=== PATIENT | female | born 1970 | race Caucasian/White ===

== ENCOUNTER 2017-06-23 11:41 | Emergency (ER) | payer OTHER ==
[2017-06-23 11:44] VITALS: BP 169/83; PULSE 78; RESP 16; TEMP 98.6; O2SAT 97
[2017-06-23] MEDS ORDERED: SODIUM CHLOR 0.9% 1000 ML INJ 1,000 ML IV SCH (12:01)
[2017-06-23 12:10] VITALS: RESP 18; O2SAT 100
[2017-06-23 12:11] VITALS: BP 157/76; PULSE 76; RESP 18; O2SAT 98
[2017-06-23] MEDS ORDERED: ORTHTAB4 PO (12:13)
[2017-06-23] MEDS ORDERED: MIRA3350 PO (12:13)
[2017-06-23] MEDS ORDERED: SODIUM CHLORIDE 0.9% FLUSH 10 ML FLUSH IV FLUSH PRN (12:15)
[2017-06-23] MEDS ORDERED: PRIL10PO PO (12:15)
[2017-06-23] MEDS ORDERED: ONDANSETRON HCL 4 MG/2 ML VIAL IV PUSH ONE (12:15)
[2017-06-23 12:29] LABS: AUTOMATED NEUTROPHIL # 8.1 TH/MM3 (1.8-7.7); BASOPHIL # 0.1 TH/MM3 (0-0.2); BASOPHIL % 0.6 % (0.0-2.0); EOSINOPHIL # 0.1 TH/MM3 (0-0.4); HEMATOCRIT 41.8 % (35.0-46.0); HEMOGLOBIN 14.3 GM/DL (11.6-15.3); LYMPH % 20.3 % (9.0-44.0); LYMPHOCYTE # 2.2 TH/MM3 (1.0-4.8); MEAN CELL VOLUME 88.9 FL (80.0-100.0); MEAN CORPUSCULAR HEMOGLOBIN 30.4 PG (27.0-34.0); MEAN CORPUSCULAR HGB CONC 34.2 % (32.0-36.0); MEAN PLATELET VOLUME 9.1 FL (7.0-11.0); MONO % 4.8 % (0.0-8.0); MONOCYTE # 0.5 TH/MM3 (0-0.9); NEUT % 73.3 % (16.0-70.0); PLATELET COUNT 284 TH/MM3 (150-450); RED BLOOD COUNT 4.69 MIL/MM3 (4.00-5.30); WHITE BLOOD COUNT 11.1 TH/MM3 (4.0-11.0)
--- NOTE | 2017-06-23 12:29 | PD ---
HPI Chief Complaint: Abdominal Pain Time Seen by Provider: 12:00 Travel History International Travel<30 days: No Contact w/Intl Traveler<30days: No Traveled to known affect area: No History of Present Illness HPI Patient is a 47-year-old female with history of diverticulitis, most room with complaints of lower abdominal pain. Reports that she has had mild to moderate lower abdominal pain since yesterday. She reports that she has had the urge to defecate but has been unable to. Patient reports that she has been having normal bowel movements, denies any diarrhea. She denies any nausea or vomiting , reports increased cramping to the lower abdomen. Patient denies any dysuria, urinary urgency or frequency. Patient reports that symptoms feel exactly the same as when she was diagnosed with diverticulitis in the past. Patient has not follow-up with the gastrointestinal doctor for a colonoscopy though she knows importance of follow up as her dad did have history of colon cancer PFSH Past Medical History Gastrointestinal Disorders: Yes (DIVERTICULITIS ) Hypertension: Yes Reproductive: Yes (FIBROIDS ON OVARIES ) Tetanus Vaccination: < 5 Years ?: Not LMP: 05/24/17 Past Surgical History Surgical History: No Previous Surgery Social History Alcohol Use: Yes (SOCIAL) Tobacco Use: No Substance Use: No Allergies-Medications (Allergen,Severity, Reaction): Coded Allergies: No Known Allergies (Unverified , 06/23/17) Reported Meds & Prescriptions Reported Meds & Active Scripts Active Flagyl (Metronidazole) 500 Mg Tab 500 Mg PO TID 10 Days Cipro (Ciprofloxacin HCl) 500 Mg Tab 500 Mg PO BID 10 Days Reported Prilosec (Omeprazole Magnesium) 10 Mg Pow 10 Mg PO DAILY Ortho Tri-Cyclen (Norgestimate-Ethinyl Estradiol) 0.18/0.215/0.25 mg-35 Mcg Tab 1 Tab PO DAILY Miralax Powder (Polyethylene Glycol 3350 Powder) 17 Gm Powd 17 Gm PO DAILY Mix and dissolve one measuring cap-ful (17 grams) in water or juice. Review of Systems General / Constitutional: No: Fever, Chills Eyes: No: Visual changes HENT: No: Headaches Cardiovascular: No: Chest Pain or Discomfort Respiratory: No: Shortness of Breath Gastrointestinal: Positive: Abdominal Pain, No: Nausea, Vomiting, Diarrhea, Constipation Genitourinary: No: Dysuria Musculoskeletal: No: Pain Skin: No Rash Neurologic: No: Weakness, Dizziness, Syncope Psychiatric: No: Depression Endocrine: No: Polydipsia Hematologic/Lymphatic: No: Easy Bruising Physical Exam Narrative GENERAL: Mild distress SKIN: Focused skin assessment warm/dry. HEAD: Atraumatic. Normocephalic. EYES: Pupils equal and round. No scleral icterus. No injection or drainage. ENT: No nasal bleeding or discharge. Mucous membranes pink and moist. NECK: Trachea midline. No JVD. CARDIOVASCULAR: Regular rate and rhythm. No murmur appreciated. RESPIRATORY: No accessory muscle use. Clear to auscultation. Breath sounds equal bilaterally. GASTROINTESTINAL: Abdomen soft, mildly tender to lower abdomen, nondistended. Hepatic and splenic margins not palpable. MUSCULOSKELETAL: No obvious deformities. No clubbing. No cyanosis. No edema. NEUROLOGICAL: Awake and alert. No obvious cranial nerve deficits. Motor grossly within normal limits. Normal speech. PSYCHIATRIC: Appropriate mood and affect; insight and judgment normal. Data Data Last Documented VS Vital Signs Date Time Temp Pulse Resp B/P (MAP) Pulse Ox O2 Delivery O2 Flow Rate FiO2 06/23/17 12:11 76 18 157/76 (103) 98 Room Air 06/23/17 11:44 98.6 Orders Orders Complete Blood Count With Diff (06/23/17 12:01) Comprehensive Metabolic Panel (06/23/17 12:01) Lipase (06/23/17 12:01) Prothrombin Time / Inr (Pt) (06/23/17 12:01) Act Partial Throm Time (Ptt) (06/23/17 12:01) Urinalysis - C+S If Indicated (06/23/17 12:01) Iv Access Insert/Monitor (06/23/17 12:01) Ecg Monitoring (06/23/17 12:01) Oximetry (06/23/17 12:01) Sodium Chlor 0.9% 1000 Ml Inj (Ns 1000 M (06/23/17 12:01) Sodium Chloride 0.9% Flush (Ns Flush) (06/23/17 12:15) Ed Urine Pregnancytest Poc (06/23/17 12:01) Ct Abd/Pel W Iv Contrast(Rout) (06/23/17 12:10) Ondansetron Inj (Zofran Inj) (06/23/17 12:15) Ketorolac Inj (Toradol Inj) (06/23/17 14:45) Iohexol 350 Inj (Omnipaque 350 Inj) (06/23/17 14:54) Ciprofloxacin 400 Mg Premix (Cipro 400 M (06/23/17 16:00) Metronidazole 500 Mg Inj (Flagyl 500 Mg (06/23/17 16:00) Sodium Chlor 0.9% 1000 Ml Inj (Ns 1000 M (06/23/17 16:00) Labs Laboratory Tests Test 06/23/17 12:16 06/23/17 12:20 White Blood Count 11.1 TH/MM3 Red Blood Count 4.69 MIL/MM3 Hemoglobin 14.3 GM/DL Hematocrit 41.8 % Mean Corpuscular Volume 88.9 FL Mean Corpuscular Hemoglobin 30.4 PG Mean Corpuscular Hemoglobin Concent 34.2 % Red Cell Distribution Width 13.0 % Platelet Count 284 TH/MM3 Mean Platelet Volume 9.1 FL Neutrophils (%) (Auto) 73.3 % Lymphocytes (%) (Auto) 20.3 % Monocytes (%) (Auto) 4.8 % Eosinophils (%) (Auto) 1.0 % Basophils (%) (Auto) 0.6 % Neutrophils # (Auto) 8.1 TH/MM3 Lymphocytes # (Auto) 2.2 TH/MM3 Monocytes # (Auto) 0.5 TH/MM3 Eosinophils # (Auto) 0.1 TH/MM3 Basophils # (Auto) 0.1 TH/MM3 CBC Comment DIFF FINAL Differential Comment Prothrombin Time 9.8 SEC Prothromb Time International Ratio 0.9 RATIO Activated Partial Thromboplast Time 27.8 SEC Blood Urea Nitrogen 12 MG/DL Creatinine 0.87 MG/DL Random Glucose 97 MG/DL Total Protein 8.0 GM/DL Albumin 3.6 GM/DL Calcium Level 8.4 MG/DL Alkaline Phosphatase 88 U/L Aspartate Amino Transf (AST/SGOT) 26 U/L Alanine Aminotransferase (ALT/SGPT) 55 U/L Total Bilirubin 0.2 MG/DL Sodium Level 138 MEQ/L Potassium Level 3.9 MEQ/L Chloride Level 107 MEQ/L Carbon Dioxide Level 24.1 MEQ/L Anion Gap 7 MEQ/L Estimat Glomerular Filtration Rate 70 ML/MIN Lipase 225 U/L Urine Color YELLOW Urine Turbidity CLEAR Urine pH 6.0 Urine Specific Hunter 1.018 Urine Protein NEG mg/dL Urine Glucose (UA) NEG mg/dL Urine Ketones NEG mg/dL Urine Occult Blood NEG Urine Nitrite NEG Urine Bilirubin NEG Urine Urobilinogen LESS THAN 2.0 MG/DL Urine Leukocyte Esterase NEG Urine RBC LESS THAN 1 /hpf Urine WBC LESS THAN 1 /hpf Urine Squamous Epithelial Cells <1 /hpf Urine Bacteria RARE /hpf Microscopic Urinalysis Comment CULT NOT INDICATED MDM Medical Decision Making Medical Screen Exam Complete: Yes Emergency Medical Condition: Yes Medical Record Reviewed: Yes Interpretation(s) Vital Signs Date Time Temp Pulse Resp B/P (MAP) Pulse Ox O2 Delivery O2 Flow Rate FiO2 06/23/17 12:11 76 18 157/76 (103) 98 Room Air 06/23/17 12:10 18 100 Room Air 06/23/17 11:44 98.6 78 16 169/83 (111) 97 Differential Diagnosis Differential includes diverticulitis, colitis, cystitis, viral syndrome, electrolyte abnormality Narrative Course Patient is a 47-year-old female who presents to emergency room complaints of lower abdominal pain since yesterday. Patient reports that symptoms feel similar to when she was diagnosed with diverticulitis in the past, an IV line was established, CBC, CMP, UA ordered. CT of the abdomen and pelvis with IV contrast was ordered. Plan to monitor patient at this time. Vital Signs Date Time Temp Pulse Resp B/P (MAP) Pulse Ox O2 Delivery O2 Flow Rate FiO2 06/23/17 12:11 76 18 157/76 (103) 98 Room Air 06/23/17 12:10 18 100 Room Air 06/23/17 11:44 98.6 78 16 169/83 (111) 97 CBC & BMP Diagram 06/23/17 12:16 Total Protein 8.0, Albumin 3.6, Calcium Level 8.4 L, Alkaline Phosphatase 88, Aspartate Amino Transf (AST/SGOT) 26, Alanine Aminotransferase (ALT/SGPT) 55 H, Total Bilirubin 0.2 Patient re-evaluated, patient with continued pain to lower abdomen, will administer toradol as she does not want narcotics at this time Last Impressions Abdomen/Pelvis CT 06/23/17 1210 Signed Impressions: Service Date/Time: Sunday, June 23, 2017 14:51 - CONCLUSION: 1. Acute sigmoid diverticulitis. No perforation, abscess, or obstruction. 2. Significantly enlarged uterus is diffusely heterogeneous. This could relate to a fibroid uterus. Consider an outpatient ultrasound of the pelvis as followup. Brad Sahu Jr., MD Patient with acute sigmoid diverticulitis. IV Rocephin as well as Flagyl ordered. I reviewed all labs and all studies with patient in detail, copies of her studies were given to her discharge. Patient will follow-up with her primary care doctor as well as sheet metal assembler and riveter and will return to emergency was needed. She will be discharged home with antibiotic prescription. Diagnosis Primary Impression: Sigmoid diverticulitis Patient Instructions: General Instructions Additional Instructions: Please provide patient with a copy of her lab work and studies at discharge Please follow up with your primary care doctor Please follow up with sheet metal assembler and riveter as soon as possible Return to ER as needed or if symptoms worsen or progress Please take all antibiotics as prescribed Scripts Metronidazole (Flagyl) 500 Mg Tab 500 MG PO TID for Infection for 10 Days, TAB 0 Refills Prov: Makeda Anand DO 06/23/17 Ciprofloxacin (Cipro) 500 Mg Tab 500 MG PO BID for Infection for 10 Days, #20 TAB 0 Refills Prov: Makeda Anand DO 06/23/17 Disposition: 01 DISCHARGE HOME Condition: Stable Makeda Anand DO Jun 23, 2017 12:29
[2017-06-23 12:37] LABS: INTERNATIONAL NORMALIZED RATIO 0.9 RATIO; PROTHROMBIN TIME - PATIENT 9.8 SEC (9.8-11.6)
[2017-06-23 12:52] LABS: ALKALINE PHOSPHATASE 88 U/L (45-117); TOTAL BILIRUBIN ADULT 0.2 MG/DL (0.2-1.0)
[2017-06-23 12:53] LABS: ALBUMIN 3.6 GM/DL (3.4-5.0); ALT (GPT) 55 U/L (10-53); AST (GOT) 26 U/L (15-37); BICARBONATE 24.1 MEQ/L (21.0-32.0); BLOOD UREA NITROGEN 12 MG/DL (7-18); CALCIUM 8.4 MG/DL (8.5-10.1); CHLORIDE 107 MEQ/L (98-107); CREATININE 0.87 MG/DL (0.50-1.00); GLOMERULAR FILTRATION RATE 70 ML/MIN (>89); GLUCOSE,RANDOM 97 MG/DL (74-106); LIPASE 225 U/L (73-393); SODIUM (NA) 138 MEQ/L (136-145)
[2017-06-23 13:04] LABS: BACTERIA, URINE RARE /hpf; BILIRUBIN, URINE NEG (NEG); BLOOD, URINE NEG (NEG); GLUCOSE,URINE NEG (NEG); KETONE, URINE NEG (NEG); NITRITE,URINE NEG (NEG); SQUAMOUS EPITHELIAL CELL URINE <1 /hpf (0-5); URINE COLOR YELLOW (YELLW/STRAW); URINE LEUKOCYTE ESTERASE NEG (NEG)
[2017-06-23] MEDS ORDERED: KETOROLAC TROMETHAMINE 30 MG/ML (IVP) VIAL IVP ONE (14:45)
[2017-06-23] MEDS ORDERED: IOHEXOL 350 MG/ML 10 ML VIAL (for RAD DIAG) IVCONTRAST ONE (14:54)
--- NOTE | 2017-06-23 15:30 | RADRPT ---
EXAM DATE/TIME: 06/23/2017 14:51 [facility] COMPARISON: No previous studies available for comparison. INDICATIONS : Lower abdominal pain. IV CONTRAST: 100 cc Omnipaque 350 (iohexol) IV ORAL CONTRAST: No oral contrast ingested. RADIATION DOSE: 10.21 CTDIvol (mGy) MEDICAL HISTORY : Hypertension. SURGICAL HISTORY : None. ENCOUNTER: Initial ACUITY: 2 days PAIN SCALE: 4/10 LOCATION: Bilateral lower quadrant TECHNIQUE: Volumetric scanning of the abdomen and pelvis was performed. Using automated exposure control and ad justment of the mA and/or kV according to patient size, radiation dose was kept as low as reasonably achievable to obtain optimal diagnostic quality images. DICOM format image data is available electro nically for review and comparison. FINDINGS: LOWER LUNGS: The visualized lower lungs are clear. LIVER: Homogeneous density without lesion. A 1.6 cm cyst is seen involving the left lobe. There is no dilati on of the biliary tree. No calcified gallstones. SPLEEN: Normal size without lesion. PANCREAS: Within normal limits. KIDNEYS: Normal in size and shape. There is no mass, stone or hydronephrosis. ADRENAL GLANDS: Within normal limits. VASCULAR: There is no aortic aneurysm. BOWEL/MESENTERY: There is an acute inflammatory process involving the proximal sigmoid colon. There is circumferential wall thickening with stranding of the adjacent fat. Multiple diverticula noted within this region. N o abscess, perforation, or obstruction. Remaining bowel structures are unremarkable. ABDOMINAL WALL: Within normal limits. RETROPERITONEUM: There is no lymphadenopathy. BLADDER: No wall thickening or mass. REPRODUCTIVE: The uterus is heterogeneous and enlarged. It measures approximately 12.7 x 1.6 x 1.3 cm. No discrete discernible mass appreciated. INGUINAL: There is no lymphadenopathy or hernia. MUSCULOSKELETAL: Within normal limits for patient age. CONCLUSION: 1. Acute sigmoid diverticulitis. No perforation, abscess, or obstruction. 2. Significantly enlarged uterus is diffusely heterogeneous. This could relate to a fibroid uterus. C onsider an outpatient ultrasound of the pelvis as followup. Brad Sahu Jr., MD on June 23, 2017 at 15:25 Board Certified Radiologist. This report was verified electronically.
[2017-06-23] MEDS ORDERED: CIPR-9 PO (15:59)
[2017-06-23] MEDS ORDERED: METR-1 PO (15:59)
[2017-06-23] MEDS ORDERED: CIPROFLOXACIN 400 MG PREMIX 200 ML IV ONE (16:00)
[2017-06-23] MEDS ORDERED: metroNIDAZOLE 500 MG INJ 100 ML IV ONE (16:00)
[2017-06-23] MEDS ORDERED: SODIUM CHLOR 0.9% 1000 ML INJ 1,000 ML IV ONE (16:00)
== END 2017-06-23 18:57 | disposition home or self-care (01) ==
LOC: NEPD 11:41
DX: K57.32 Diverticulitis of large intestine without perforation or abscess without bleeding (principal)
CPT/HCPCS: 74177; 80053; 81001; 83690; 84703; 85025; 85610; 85730; 96361; 96365; 96375; 99285; J0744; J1885; J2405; J7030; Q9967